=== PATIENT | male | born 1985 | race Hispanic/Latino ===

== ENCOUNTER 2017-03-25 15:05 | Outpatient (CLI) | payer OTHER ==
[2017-03-25 15:32] LABS: #Basophils 0.1 thou/uL (0.0-0.2); #Eosinphils 0.1 thou/uL (0.0-0.7); #Lymphocytes 3.3 thou/uL (1.20-3.40); #Monocytes 0.4 thou/uL (0.11-0.59); #Neutrophils 4.6 thou/uL (1.40-6.50); %Basophils 0.9 % (0.0-1.0); %Eosinophils 0.9 % (0.0-10.0); %Lymphocytes 38.7 % (21.0-51.0); %Monocytes 5.1 % (0.0-10.0); %Neutrophils 54.4 % (42.0-75.0); Hemoglobin 16.4 g/dL (14.0-18.0); Mean Corpuscular HGB CONC 33.5 g/dL (32.0-36.0); Mean Corpuscular Hemoglobin 28.9 pg (27.0-31.0); Mean Corpuscular Volume 86.2 fl (80.0-94.0); Mean Platelet Volume 7.5 fL (7.4-10.4); Platelet Count 347 thou/uL (130-400); RBC Distribution Width 11.8 % (11.5-14.5); Red Blood Cell (RBC) Count 5.68 mill/uL (4.70-6.10); White Blood Cell (WBC) Count 8.5 thou/uL (4.8-10.8)
[2017-03-25 15:53] LABS: ALT (SGPT) 165 U/L (8-55); AST (SGOT) 104 U/L (5-34); Albumin 4.6 g/dL (3.5-5.0); Alkaline Phosphatase 111 U/L (40-150); Anion Gap 16 mmol/L (10-20); BUN (Urea Nitrogen) 10 mg/dL (8.9-20.6); Bilirubin, Total 0.6 mg/dL (0.2-1.2); Calc. Creatinine Clearance 0 mL/min (70-130); Calcium 9.6 mg/dL (7.8-10.44); Carbon Dioxide 25 mmol/L (22-29); Chloride 105 mmol/L (98-107); Estimated GFR-MDRD 89; Globulin 2.8 g/dL (2.4-3.5); Glucose 88 mg/dL (70-105); Lipase 14 U/L (8-78); Potassium 4.2 mmol/L (3.5-5.1); Protein, Total 7.4 g/dL (6.0-8.3); Sodium 142 mmol/L (136-145)
== END 2017-03-25 15:06 ==
LOC: HPCALD 15:05
PROVIDERS: ATTEND Physician Assistant
DX: K21.9 Gastro-esophageal reflux disease without esophagitis (principal)
CPT/HCPCS: 36415; 80053; 83690; 85025

== ENCOUNTER 2017-04-02 08:40 | Outpatient (CLI) | payer OTHER ==
--- NOTE | 2017-04-02 17:18 | ULT ---
ABDOMINAL ULTRASOUND 04/02/17 Ultrasonography of the abdomen was performed for evaluation of elevated liver function tests. The liver is mildly enlarged, measuring 16.1 cm in oblique sagittal length. Internally it is echo de nse, suggestive of diffuse fatty infiltration. No masses or dilated ducts were seen. Portal venous f low was appropriately towards the liver. The gallbladder contained no signs of stones or wall thicke benji. The common bile duct was borderline in size at 6 mm in width. The visible portions of the pancreas appear normal, but areas were not seen due to gas. The right ki dney is 11.1 cm long and the left kidney is 11.2 cm long. Both appear normal. The spleen is normal i n size. The aorta and inferior vena cava appear normal. IMPRESSION: Minimal hepatic enlargement with evidence of diffuse fatty infiltration. POS: HOME
== END 2017-04-02 08:41 | disposition home or self-care (01) ==
LOC: BURULT 08:40
PROVIDERS: ATTEND Family Medicine
DX: K76.89 Other specified diseases of liver (principal); R16.0 Hepatomegaly, not elsewhere classified; K76.0 Fatty (change of) liver, not elsewhere classified
CPT/HCPCS: 76700

== ENCOUNTER 2017-04-02 09:16 | Outpatient (CLI) | payer OTHER ==
[2017-04-02 17:33] LABS: HBCM Index 0.06 S/CO (0-0.79); HBSAg Index 0.19 S/CO (0-0.99); Hep A IgM AB Non-Reactive (NonReactive); Hep A IgM S/CO 0.09 S/CO (0-0.79); Hep B Surf Ag Non-Reactive S/CO (NonReactive); Hep C IgG Ab Non-Reactive (NonReactive); Hep C Index 0.07 S/CO (0-0.79); Hepatitis B Core IGM Abs Non-Reactive (NonReactive)
== END 2017-04-02 09:17 | disposition home or self-care (01) ==
LOC: HPCALD 09:16
PROVIDERS: ATTEND Physician Assistant
DX: K76.89 Other specified diseases of liver (principal)
CPT/HCPCS: 36415; 80074

== ENCOUNTER 2017-04-15 13:41 | Outpatient (CLI) | payer OTHER ==
--- NOTE | 2017-04-15 16:50 | RAD ---
CHEST 2 VIEWS: Date: 04/15/17 Comparison made with the 11/19/15 study. The heart is normal in size and the lungs are clear. There is no sign of pneumonia or other infiltra tive process. No effusions are seen. The trachea is midline. The mediastinum appears normal. IMPRESSION: No acute thoracic finding. POS: HOME
== END 2017-04-15 13:42 | disposition home or self-care (01) ==
LOC: BURRAD 13:41
PROVIDERS: ATTEND Physician Assistant
DX: R05 Cough (principal)
CPT/HCPCS: 71020

== ENCOUNTER 2020-05-29 22:37 | Emergency (ER) | payer OTHER | END 2020-05-29 23:05 | disposition home or self-care (01) | LOC: BURERS 22:37 | DX: K64.4 Residual hemorrhoidal skin tags (principal) | CPT/HCPCS: 99283 ==